=== PATIENT | male | born 2000 | race Caucasian/White ===

== ENCOUNTER 2022-01-20 06:45 | Emergency (ER) | payer OTHER, SELFPAY ==
--- NOTE | ~2022-01-20 | XR_ITS ---
EXAMINATION: XR knee LT 2V DATE: 01/20/2022 08:13 INDICATION: Left knee injury and pain. TECHNIQUE: 2 views of left knee were obtained. COMPARISON: None. FINDINGS: Bone alignment is normal. No fracture. Joint spaces are normal. There is a small knee joint effusion. IMPRESSION: 1. Small knee joint effusion. Reviewed, dictated and finalized at location A.
[2022-01-20 06:54] VITALS: BP 124/58; PULSE 86; RESP 16; TEMP 36.8; O2SAT 98
[2022-01-20] MEDS: KETOROLAC (*BKC) 60 MG/2 ML VIAL IM (07:36)
--- NOTE | 2022-01-20 08:36 | ED.LOWEXIN ---
HPI - Extremity Injury (Lower) General Chief Complaint: Extremity Injury, Lower Stated Complaint: L Knee pain Source: patient Mode of arrival: wheelchair Limitations: no limitations History of Present Illness HPI Narrative: this is a 21-year-old male that presents with some left knee pain after he jumped off a truck and cause hyper extension and twisting of his left knee causing pain that he rates about an 8/10 with joint swelling and having difficulty bearing weight and difficulty movement, rates his pain about 8/10 [place] from out of town and does not have a primary care physician locally, while at work a jump from a truck and landed on his knee causing pain and discomfort. complaint: knee injury Onset (ago): hour(s) Injury: Left: knee ( swollen tender) Type of Injury: hyperflexion Place: work Severity: severe Severity scale (1-10): 8 Relieving factors: immobilization Exacerbating factors: weight bearing, movement and palpation Context: jumping Related Data Allergies Allergy/AdvReac Type Severity Reaction Status Date / Time Penicillins Allergy Unknown Verified 01/20/22 06:53 Review of Systems Review of Systems: All systems reviewed & are unremarkable except as noted in HPI and below PMFSH Past Medical History Medical History Patient denies medical problems Exam Const: General: healthy appearing and no acute distress HENMT: Head: normal to inspection Eyes: Conjunctivae: conjunctivae normal EOM: EOMs intact bilaterally Neck: Neck: normal visual inspection and no lymphadenopathy Chest: Chest palpation & inspection: normal inspection of the chest Resp: Effort & Inspection: normal respiratory effort Auscultation: clear to auscultation bilaterally Cardio: Rate: regular rate Rhythm: regular rhythm GI: GI Palp: Yes Soft to palpation Auscultation: normal bowel sounds Back/Spine/Pelvis: Back: no CVA tenderness Skin: General skin exam: normal color Rashes: no rashes Neuro: General: patient oriented x3, no meningeal signs and no focal motor deficits Extrem: Other: swollen tender anterior left knee with palpation and movement Psych: Mental Status: mental status grossly normal Course Course Emergency Course: patient received IM injection of Toradol and after reassessment states his pain has marginally improved, x-ray of his left knee was reviewed with patient and advised that he establish locally to possibly have an MRI for further evaluation and treatment. Will apply a knee immobilizer and sent pain medication to his local pharmacy. Vital Signs Vital signs: Vital Signs Temperature 36.8 C 01/20/22 06:54 Pulse Rate 86 01/20/22 06:54 Respiratory Rate 16 01/20/22 06:54 Blood Pressure 124/58 L 01/20/22 06:54 Pulse Oximetry 98 01/20/22 06:54 Oxygen Delivery Room Air 01/20/22 06:54 Temperature 36.8 C 01/20/22 06:54 Pulse Rate 86 01/20/22 06:54 Respiratory Rate 16 01/20/22 06:54 Blood Pressure 124/58 L 01/20/22 06:54 Pulse Oximetry 98 01/20/22 06:54 Oxygen Delivery Room Air 01/20/22 06:54 Critical Care Time Critical Care Time Critical Care Time: No Discharge Plan Discharge Clinical Impression: Knee strain Qualifiers: Encounter type: initial encounter Laterality: left Qualified Code(s): S86.912A - Strain of unspecified muscle(s) and tendon(s) at lower leg level, left leg, initial encounter Patient Disposition: Home, Self-Care Condition: Stable Instructions: Antibiotic Form, Knee Sprain (ED) Additional Instructions: advised to follow-up with some of local primary for possible MRI take medicine as prescribed can continue to use ice elevate the leg while at rest limited weight-bearing. Prescriptions: New oxycodone-acetaminophen [Percocet] 5-325 mg tablet 1 tablet PO Q6H PRN (Reason: pain) Qty: 20 0RF Follow-up/Referrals: UNKNOWN,DOCTOR [Primary Care Provider] - Time of
[2022-01-20 08:46] VITALS: BP 119/60; PULSE 72; RESP 16; TEMP 36.4; O2SAT 99
== END 2022-01-20 08:51 | disposition home or self-care (01) ==
PROVIDERS: Emergency Provider Emergency Medicine
DX: S86.912A Strain of unspecified muscle(s) and tendon(s) at lower leg level, left leg, initial encounter (principal); W17.89XA Other fall from one level to another, initial encounter
CPT/HCPCS: 73560; 96372; 99283; J1885; L1830